=== PATIENT | male | born 1950 | race Caucasian/White ===

== ENCOUNTER 2016-12-18 17:36 | Emergency (ER) | payer MEDICARE, BC ==
[2016-12-18 17:37] VITALS: BMI 26.6
[2016-12-18 17:53] VITALS: TEMP 99.4
[2016-12-18] MEDS ORDERED: Oxycodone/Acetaminophen 5/325 mg Tab PO STA (18:21)
[2016-12-18] MEDS ORDERED: Oxycodone/Acetaminophen 5/325 mg Tab ONE (18:34)
[2016-12-18 18:54] VITALS: BP 133/74; PULSE 98; RESP 20; O2SAT 98
--- NOTE | 2016-12-18 19:10 | C.PDOC ---
History Of Present Illness Pt c/o left upper toothache. Time Seen by Provider: 12/18/16 18:08 Chief Complaint (Nursing): Dental Pain History Per: Patient Onset/Duration Of Symptoms: Days (about 1 week) Current Symptoms Are (Timing): Still Present Severity: Moderate Dental/Oral: 1 - pain, severe caries/dentition Quality: Positive for: "Pain" Additional History Per: Prior Records Past Medical History Reviewed: Historical Data, Nursing Documentation, Vital Signs Vital Signs: Last Vital Signs Temp 99.4 F 12/18/16 17:50 Pulse 98 H 12/18/16 18:53 Resp 20 12/18/16 18:53 BP 133/74 12/18/16 18:53 Pulse Ox 98 12/18/16 18:53 - Medical History PMH: Anemia, Atrial Fibrillation, Depression, Diabetes, Fractures (VERTEBRAE), HTN, Malignancy (MULTIPLE MYELOMA), End Stage Renal Disease, Chronic Kidney Disease Surgical History: Pacemaker - [facility] Procedures ANGIOPLASTY OF OTHER NON-CORONARY VESSEL(S) (09/16/11) ATHERECTOMY OF OTHER NON-CORONARY VESSEL(S) (09/16/11) CONTRAST AORTOGRAM (09/16/11) CONTRAST ARTERIOGRAM-LEG (09/16/11) HEMODIALYSIS (09/16/11) INSEJ [id number] PERIPHERAL NON-CORONARY VES STENT(S) (09/16/11) INSERTION OF TWO VASCULAR STENTS (09/16/11) PACKED CELL TRANSFUSION (01/09/13) PROCEDURE ON TWO VESSELS (09/16/11) Family History: States: Unknown Family Hx - Social History Hx Tobacco Use: No Hx Alcohol Use: No Hx Substance Use: No - Immunization History Hx Tetanus Toxoid Vaccination: No Hx Influenza Vaccination: No Hx Pneumococcal Vaccination: No Review Of Systems Except As Marked, All Systems Reviewed And Found Negative. Constitutional: Negative for: Fever ENT: Positive for: Mouth Pain. Negative for: Throat Pain, Throat Swelling Cardiovascular: Negative for: Chest Pain Respiratory: Negative for: Shortness of Breath Gastrointestinal: Negative for: Vomiting, Abdominal Pain Musculoskeletal: Negative for: Neck Pain Skin: Negative for: Rash Neurological: Negative for: Weakness, Numbness, Seizures Physical Exam - Physical Exam Appears: Non-toxic, No Acute Distress Skin: Normal Color, Warm, Dry Head: Atraumatic, Normacephalic Eye(s): bilateral: PERRL, EOMI Oral Mucosa: Moist, No Drooling, No Trismus Tongue: Normal Appearing Lips: Normal Appearing Teeth: Caries, Tender To Palpation (left upper) Gingiva: Erythema (left upper), Tender (left upper), No Abscess Throat: Normal Neck: Normal ROM, Supple Cardiovascular: Rhythm Regular Respiratory: Normal Breath Sounds, No Accessory Muscle Use Gastrointestinal/Abdominal: Soft, No Tenderness Extremity: Normal ROM Neurological/Psych: Oriented x3, Normal Speech, Normal Motor, Normal Sensation ED Course And Treatment O2 Sat by Pulse Oximetry: 98 Pulse Ox Interpretation: Normal Progress - Medications Administered Oral: Opiate, Other (Abx) - Data Reviewed Data Reviewed: Old records - Patient Status Patient status: Mostly improved - Continuity of Care Discussed patient case with:: Patient, ED Nurse - Patient Plan Patient Plan: Discharge, F/U with PCP, Continue present meds Disposition Counseled Patient/Family Regarding: Diagnosis, Need For Followup, Rx Given - Disposition Referrals: Tomer Wang MD [Staff Provider] - Disposition: HOME/ ROUTINE Disposition Time: 19:13 Condition: IMPROVED Additional Instructions: Follow up with a dentist this week for further evaluation and treatment. Follow up with your primary doctor. Return to the ER if you develop fever, redness, swelling, worsening of symptoms or if you have any other concerns. Prescriptions: Clindamycin [Cleocin] 300 mg PO QID #28 cap Loratadine [Claritin] 10 mg PO MWF PRN #30 tab PRN Reason: Allergy Symptoms oxyCODONE/Acetaminophen [Percocet 5/325 mg Tab] 1 tab PO QID PRN #12 tab PRN Reason: Pain Instructions: Toothache (ED) Forms: [employer] (Chilean) Print Language: TAJIK - Clinical Impression Clinical Impression: Toothache
== END 2016-12-18 19:44 | disposition home or self-care (01) ==
LOC: C.ER 17:36
DX: K08.89 Other specified disorders of teeth and supporting structures (principal)